=== PATIENT | male | born 1995 | race Caucasian/White ===

== ENCOUNTER 2022-01-18 17:14 | Emergency (ER) | payer SELFPAY ==
[~2022-01-18] VITALS: Ht 172.7 cm; Wt 81.6 kg
[2022-01-18 17:15] VITALS: BP 143/86
--- NOTE | 2022-01-18 17:20 | NUR ---
TO ER BED 11
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
--- NOTE | 2022-01-18 17:36 | NUR ---
pt went for ct
[2022-01-18] MEDS ORDERED: MORPHINE SULFATE 4 MG/ML SYR IVP ONE (18:05)
[2022-01-18] MEDS ORDERED: IBUP-2213 PO (21:33)
--- NOTE | 2022-01-18 21:43 | NUR ---
d/c with [facility]. d/c education given. opportunity to ask questions given and answered. IV sites removed, bleeding controlled with sterile gauze and reinforced with tape. rx of motrin given.
[2022-01-18 21:44] VITALS: BP 143/77
== END 2022-01-18 21:43 | disposition home or self-care (01) ==
LOC: MED 17:14
DX: S01.01XA Laceration without foreign body of scalp, initial encounter (principal); W18.30XA Fall on same level, unspecified, initial encounter; Y93.89 Activity, other specified; Y92.89 Other specified places as the place of occurrence of the external cause; Y99.8 Other external cause status
CPT/HCPCS: 12002; 70450; 90471; 90715; 96374; 99284; J2270